=== PATIENT | male | born 1955 | race Caucasian/White ===

== ENCOUNTER 2017-03-08 13:39 | Outpatient (CLI) | payer OTHER ==
[2017-03-08 14:29] LABS: CLARITY,URINE Cloudy (Clear); COLOR,URINE Yellow (Yellow); GLUCOSE, URINE Negative (Neg); KETONES,URINE Negative (Neg); LEUKOCYTE ESTERASE ,URINE Large (Neg); NITRITES, URINE Positive (Neg); OCCULT BLOOD,URINE Small (Neg); PROTEIN,URINE Negative (Neg); UROBILINOGEN,URINE 0.2 E.U/dL (0.2-1.0)
[2017-03-08 14:35] LABS: UA COLLECTION TYPE NON-SPECIFIED
[2017-03-08 14:37] LABS: BACTERIA,URINE 2+ /HPF (Neg); MUCUS STRANDS NONE SEEN /LPF (Neg); SQUAMOUS EPITHELIAL CELL,UR NONE SEEN /LPF (FEW); WBC,URINE 50-100 /HPF (0-4)
== END 2017-03-08 23:59 | disposition home or self-care (01) ==
LOC: LAB 13:39
PROVIDERS: ATTEND Nurse Practitioner Family
DX: N39.0 Urinary tract infection, site not specified (principal)
CPT/HCPCS: 81001; 87077; 87088; 87186

== ENCOUNTER 2017-03-24 08:09 | Emergency (ER) | payer OTHER ==
[~2017-03-24] VITALS: Ht 188 cm; Wt 98.0 kg
[~2017-03-24 08:09] MED LIST: LISI1TAB9 PO; METF500T7 PO; ROSU10TA PO
[2017-03-24] MEDS ORDERED: ertapenem sod inj 1 GM in normal saline 100ml IV soln 100 ML IV STA (08:21)
[2017-03-24 10:08] VITALS: BP 134/72
== END 2017-03-24 10:10 | disposition home or self-care (01) ==
LOC: ER 08:10
DX: N39.0 Urinary tract infection, site not specified (principal); Z79.84 Long term (current) use of oral hypoglycemic drugs; Z79.899 Other long term (current) drug therapy
CPT/HCPCS: 99281; J7030

== ENCOUNTER 2017-03-28 12:05 | Outpatient (CLI) | payer OTHER | END 2017-03-28 23:59 | disposition home or self-care (01) | LOC: LAB 12:05 | PROVIDERS: ATTEND Nurse Practitioner Family | DX: N42.9 Disorder of prostate, unspecified (principal) | CPT/HCPCS: 36415; 84153 ==

== ENCOUNTER 2017-06-13 08:58 | Day surgery (SDC) | payer OTHER ==
[~2017-06-13] VITALS: Ht 188 cm; Wt 95.5 kg
[2017-06-13] MEDS ORDERED: fentaNYL/PF 50MCG/1 ML 2ML syringe ONE (09:20)
[2017-06-13] MEDS ORDERED: MIDAZolam 5mg/5ml vial ONE (09:20)
[2017-06-13 09:23] VITALS: BP 143/89
[2017-06-13 10:24] VITALS: BP 113/74
[2017-06-13 10:34] VITALS: BP 105/71
[2017-06-13 10:54] VITALS: BP 105/68
[2017-06-13 11:04] VITALS: BP 119/73
== END 2017-06-13 11:15 | disposition home or self-care (01) ==
LOC: GI LAB 08:58
PROVIDERS: ATTEND Internal Medicine Gastroenterology
DX: Z12.11 Encounter for screening for malignant neoplasm of colon (principal); D12.4 Benign neoplasm of descending colon; K62.1 Rectal polyp; K57.30 Diverticulosis of large intestine without perforation or abscess without bleeding; I10 Essential (primary) hypertension; Z79.84 Long term (current) use of oral hypoglycemic drugs; Z72.89 Other problems related to lifestyle; Z79.899 Other long term (current) drug therapy
CPT/HCPCS: 45380; 45385; 99152; 99153; J2250; J3010; J7030; A4620; G0500

== ENCOUNTER 2018-01-30 00:23 | Outpatient (CLI) | payer OTHER | END 2018-01-30 23:59 | disposition home or self-care (01) | LOC: DIABETIC 00:23 | PROVIDERS: ATTEND Family Medicine | DX: E11.9 Type 2 diabetes mellitus without complications (principal); I10 Essential (primary) hypertension; Z79.84 Long term (current) use of oral hypoglycemic drugs | CPT/HCPCS: G0108 ==